=== PATIENT | female | born 1980 | race Hispanic/Latino ===

== ENCOUNTER → 2016-05-26 | Outpatient (CLI) | payer OTHER ==
[~2016-05-26] MED LIST: NORCOTAB PO; SENN1TAB2 PO; SUMA50TA2 PO; TOPA50TA7 PO
[2016-05-26 14:21] LABS: BASO % 0.4 % (0.0-1.0); EOS # 0.1 K/mm3 (0.0-0.50); EOS % 1.2 % (0.0-3.0); LARGE UNSTAINED CELL # 0.1 K/mm3 (0.0-0.4); LARGE UNSTAINED CELL % 0.7 % (0.0-4.0); LYMPH # 1.8 K/mm3 (1.5-4.5); MEAN CORPUSCULAR HEMOGLOBIN 28.3 pg (27.0-33.0); MEAN CORPUSCULAR HGB CONC 33.2 g/dl (32.0-36.5); MEAN CORPUSCULAR VOLUME 85.1 fl (80.0-96.0); MONO # 0.4 K/mm3 (0.0-0.8); MONO % 4.1 % (0.0-5.0); NEUTROPHILS # 6.6 K/mm3 (1.8-7.7); NEUTROPHILS % 74.6 % (36.0-66.0); PLATELET COUNT, AUTOMATED 299 k/mm3 (150-450); RED CELL DISTRIBUTION WIDTH 12.9 % (11.5-14.5); WHITE BLOOD COUNT 8.9 K/mm3 (4.0-10.0)
[2016-05-26 14:45] LABS: HBsAg Prenatal NEGATIVE (NEGATIVE)
[2016-05-26 14:46] LABS: HIV SCRN NEGATIVE (NEGATIVE); HIV SCRN1 NEGATIVE (NEGATIVE)
[2016-05-26 14:47] LABS: CONTROL LINE INT CTR LINE PRESENT
== END ==
LOC: M SMT 11:40
PROVIDERS: ATTEND Advanced Practice Midwife
DX: Z34.81 Encounter for supervision of other normal pregnancy, first trimester (principal)

== ENCOUNTER → 2016-07-05 | Outpatient (CLI) | payer OTHER ==
--- NOTE | 2016-07-06 05:49 | REP ---
Clinical: Anatomical evaluation. Comparison: None . Findings: Examination demonstrates a single live intrauterine in cephalic presentation. motion is identified by technologist. Placenta is noted posteriorly, grade zero and low-lying approximately 2 cm from the closed internal os. Amniotic fluid volume is normal. Cervix measures 4.5 cm in length and appears closed. No evidence for nuchal cord. Gestational age by current measurements 19 weeks 1 day with JAMISON 11/28/2016 . FHR equals 147 beats per minute. BPD 4.4 cm 19 weeks 2 days HC 16.4 cm 19 weeks 1 day AC 13.8 cm 19 weeks 1 day FL 3.1 cm 19 weeks 4 days HL 3.0 cm 19 weeks 5 days HC/AC ratio 1.19 Estimated weight 287 grams ( 54th percentile). Anatomical assessment demonstrates normal structures including cranium, choroid plexus, cavum, cerebellum/posterior fossa, facial profile, lungs, diaphragm, stomach, cord insertion/three-vessel cord, kidneys/bladder, spine, and upper extremities. Limited evaluation of the facial features, heart/ventricular outflow tracts, and lower extremities. Impression: 1. Single live intrauterine in cephalic presentation. 2. Low-lying posterior placenta approximately 2 cm from the closed internal os. 3. Anatomical limitations as described above may warrant reevaluation. Signed by Tomas Aguillon MD 07/06/2016 05:41 A
== END ==
LOC: M SMT 10:10
PROVIDERS: ATTEND Advanced Practice Midwife
DX: Z36 Encounter for antenatal screening of mother (principal); Z3A.19 19 weeks gestation of pregnancy

== ENCOUNTER → 2016-08-04 | Outpatient (CLI) | payer OTHER ==
[2016-08-04 13:16] LABS: BASO % 0.3 % (0.0-1.0); EOS # 0.1 K/mm3 (0.0-0.50); EOS % 1.3 % (0.0-3.0); LARGE UNSTAINED CELL # 0.1 K/mm3 (0.0-0.4); LYMPH # 1.8 K/mm3 (1.5-4.5); LYMPH % 16.9 % (24.0-44.0); MEAN CORPUSCULAR HEMOGLOBIN 29.2 pg (27.0-33.0); MEAN CORPUSCULAR HGB CONC 33.1 g/dl (32.0-36.5); MEAN CORPUSCULAR VOLUME 88.1 fl (80.0-96.0); MONO # 0.5 K/mm3 (0.0-0.8); MONO % 4.7 % (0.0-5.0); NEUTROPHILS # 7.7 K/mm3 (1.8-7.7); NEUTROPHILS % 75.8 % (36.0-66.0); PLATELET COUNT, AUTOMATED 194 k/mm3 (150-450); RED CELL DISTRIBUTION WIDTH 14.2 % (11.5-14.5); WHITE BLOOD COUNT 10.1 K/mm3 (4.0-10.0)
== END ==
LOC: M SMT 08:35
PROVIDERS: ATTEND Advanced Practice Midwife
DX: O09.523 Supervision of elderly multigravida, third trimester (principal); Z36 Encounter for antenatal screening of mother; Z3A.00 Weeks of gestation of pregnancy not specified

== ENCOUNTER → 2016-08-25 | Outpatient (CLI) | payer OTHER ==
--- NOTE | 2016-08-26 06:07 | REP ---
Clinical: Anatomical evaluation. Comparison: 07/05/2016 . Findings: Examination demonstrates a single live intrauterine in breech presentation. motion is identified by technologist. Placenta is noted posteriorly and grade a zero without evidence for placenta previa or abruption. Amniotic fluid volume is normal. Cervix measures the 5.4 cm in length and appears closed. No evidence for nuchal cord. Gestational age by first US 26 weeks 3 days with JAMISON 11/28/2016 . Gestational age by current measurements 26 weeks 2 days with JAMISON 11/29/2016 . FHR equals 141 beats per minute. Estimated weight 1002 grams ( 55th percentile). Anatomical assessment demonstrates normal structures including cranium, choroid plexus, cavum, cerebellum/posterior fossa, facial features, lungs, four-chamber heart/ventricular outflow tracts, diaphragm, stomach, cord insertion/three-vessel cord, kidneys/bladder, spine, and extremities. Impression: 1. Single live intrauterine in breech presentation demonstrating appropriate interval growth. 2. Anatomical assessment is complete and normal. Signed by Tomas Aguillon MD 08/26/2016 05:59 A
== END ==
LOC: M SMT 11:15
PROVIDERS: ATTEND Specialist
DX: O09.522 Supervision of elderly multigravida, second trimester (principal); Z36 Encounter for antenatal screening of mother; Z3A.26 26 weeks gestation of pregnancy

== ENCOUNTER → 2016-09-08 | Outpatient (CLI) | payer OTHER ==
[2016-09-08 19:40] LABS: BASO % 0.4 % (0.0-1.0); EOS # 0.1 K/mm3 (0.0-0.50); EOS % 0.7 % (0.0-3.0); LARGE UNSTAINED CELL # 0.2 K/mm3 (0.0-0.4); LARGE UNSTAINED CELL % 1.3 % (0.0-4.0); LYMPH % 17.2 % (24.0-44.0); MEAN CORPUSCULAR HEMOGLOBIN 28.7 pg (27.0-33.0); MEAN CORPUSCULAR HGB CONC 32.5 g/dl (32.0-36.5); MEAN CORPUSCULAR VOLUME 88.4 fl (80.0-96.0); MONO # 0.6 K/mm3 (0.0-0.8); MONO % 5.3 % (0.0-5.0); NEUTROPHILS # 8.8 K/mm3 (1.8-7.7); NEUTROPHILS % 75.1 % (36.0-66.0); PLATELET COUNT, AUTOMATED 194 k/mm3 (150-450); RED CELL DISTRIBUTION WIDTH 13.7 % (11.5-14.5); WHITE BLOOD COUNT 11.6 K/mm3 (4.0-10.0)
[2016-09-08 19:44] LABS: ANION GAP 8 MEQ/L (8-16); BLOOD UREA NITROGEN 11 MG/DL (7-18); CALCIUM LEVEL 8.4 MG/DL (8.5-10.1); CARBON DIOXIDE LEVEL 25 MEQ/L (21-32); CHLORIDE LEVEL 106 MEQ/L (98-107); CREATININE FOR GFR 0.49 MG/DL (0.55-1.02); GLOMERULAR FILTRATION RATE > 60.0 (>60); GLUCOSE, FASTING 97 MG/DL (70-105); POTASSIUM SERUM 4.1 MEQ/L (3.5-5.1); SODIUM LEVEL 139 MEQ/L (136-145)
== END ==
LOC: M SMT 11:40
PROVIDERS: ATTEND Physician Assistant
DX: R42 Dizziness and giddiness (principal)

== ENCOUNTER → 2016-11-10 | Outpatient (REF) | payer OTHER ==
[~2016-11-10] MED LIST changes: +ACET325T PO; +ADVI200T PO; +PERC5TAB12 PO; +PRENTAB40 PO; -TOPA50TA7 PO; +TOPA50TA8 PO
== END ==
LOC: M LAB REF 17:06
PROVIDERS: ATTEND Advanced Practice Midwife
DX: Z36 Encounter for antenatal screening of mother (principal); Z3A.00 Weeks of gestation of pregnancy not specified

== ENCOUNTER 2016-11-26 06:17 | Inpatient (IN) | payer OTHER ==
[2016-11-26] VITALS (8 sets, daily range): BP systolic 101–118; BP diastolic 55–74
[~2016-11-26] VITALS: Ht 152.4 cm; Wt 74.0 kg
[~2016-11-26 06:17] MED LIST changes: -ADVI200T PO; -PERC5TAB12 PO
[2016-11-26] MEDS ORDERED: BICITRA 30ML SOLN UDC PO ONE (07:00)
[2016-11-26] MEDS ORDERED: LR 800 ML IV ONE (07:00)
[2016-11-26] MEDS ORDERED: LR 1,000 ML IV SCH ×2 (07:00→09:45)
[2016-11-26 07:27] LABS: MEAN CORPUSCULAR HEMOGLOBIN 29.2 pg (27.0-33.0); MEAN CORPUSCULAR HGB CONC 33.9 g/dl (32.0-36.5); RED CELL DISTRIBUTION WIDTH 14.2 % (11.5-14.5); WHITE BLOOD COUNT 13.6 K/mm3 (4.0-10.0)
[2016-11-26] MEDS ORDERED: MORPHINE PRES-FREE INJ 10 MG/10 ML VIAL (J2274) As Ordered ONE (08:07)
[2016-11-26] MEDS ORDERED: OXYTOCIN INJ 10 UNITS/ML VIAL (J2590) As Ordered ONE (08:09)
[2016-11-26] MEDS ORDERED: METOCLOPRAMIDE INJ 10MG/2ML VIAL (J2765) IV PRN (08:28)
[2016-11-26] MEDS ORDERED: NALOXONE INJ 0.4 MG/1 ML VIAL (J2310) IV PRN ×2 (08:28)
[2016-11-26] MEDS ORDERED: ONDANSETRON 4MG/2ML VIAL (J2405) IV PRN ×3 (08:28→09:45)
[2016-11-26] MEDS ORDERED: ONDANSETRON 4MG/2ML VIAL (J2405) As Ordered ONE (08:43)
[2016-11-26] MEDS ORDERED: KETOROLAC 60 MG/2 ML VIAL (J1885) As Ordered ONE (08:43)
[2016-11-26] MEDS: PRENATAL VITAMINS CHEWABLE TABLET PO SCH (09:00)
[2016-11-26] MEDS ORDERED: PERCOCET 5MG/325MG TAB PO PRN ×2 (09:45)
[2016-11-26] MEDS ORDERED: fentaNYL 100 MCG/2 ML INJECTION (J3010) IV PRN (09:45)
[2016-11-26] MEDS ORDERED: RHOGAM 300 MCG (1500 IU) INJ (J2790) IM SCH (09:45)
[2016-11-26] MEDS ORDERED: DOCUSATE SODIUM 100 MG CAP PO PRN (09:45)
[2016-11-26] MEDS ORDERED: OXYTOCIN DRIP 30 UNITS in APPROPRIATE DILUENT 1 EA IV ONE (09:45)
[2016-11-26] MEDS ORDERED: MEPERIDINE INJ 25 MG/ML VIAL (J2175) IV PRN (09:45)
[2016-11-26] MEDS ORDERED: KETOROLAC 30 MG/ML VIAL (J1885) IV PRN (09:45)
[2016-11-26] MEDS ORDERED: MEASLES,MUMPS,RUBELLA VACCINE INJ (MMR-II) (90707) SC SCH (09:45)
--- NOTE | 2016-11-26 12:26 | RO ---
DATE OF PROCEDURE: 11/26/2016 PREPROCEDURE DIAGNOSES: 39 week gestation, prior section, undesired fertility. POSTPROCEDURE DIAGNOSES: 39 week gestation, prior section, undesired fertility. PROCEDURE: Repeat low transverse section and bilateral tubal ligation. SURGEON: Brennan Mcconnell MD GRAIN PACKER: Hosea Stearns DO ANESTHESIA: Spinal. ESTIMATED BLOOD LOSS: 600 mL. URINE OUTPUT: 150 mL. FINDINGS: 3784 gram or 8 pounds 5 ounce male with scores of 8 and 9. Loose nuchal cord times one. Normal uterus, fallopian tubes and ovaries. DESCRIPTION OF PROCEDURE: The patient was taken to the operating room where spinal anesthesia was induced. She was prepped and draped in a sterile fashion in the supine position. Hutchison catheter was placed. Pfannenstiel skin incision was made with a scalpel and carried through to the fascia. The fascia was nicked and extended. The fascia was dissected off the rectus muscle. The peritoneal cavity was entered. Bladder flap was created. A curvilinear incision was made in the lower uterine segment. The incision was extended manually. The infant was delivered from the vertex position without difficulty. Loose nuchal cord times one was reduced manually. Cord was doubly clamped and cut. The was handed off to the awaiting nurses. The placenta was expressed. The uterus was exteriorized and cleared of clots and debris. Uterine incision was closed with #0 Vicryl in a running fashion. A second imbricating layer of #0 Vicryl was placed. Attention was turned to the fallopian tubes. [place] was placed at the mid portion of each fallopian tube. A window was created in the broad ligament. Free tie of #3-0 chromic was placed on either side of the Will clamp. A knuckle of tube was excised and sent to pathology. The uterus was placed back into the abdominal cavity. The peritoneum was closed with #2-0 Vicryl in a running fashion. Fascia was closed with #0 Vicryl in a running fashion. The deep layer was irrigated and closed with #3-0 chromic. Skin was closed with #4-0 Monocryl subcuticular sutures. Sponge, instrument and needle counts were correct.
[2016-11-26] MEDS: LR 1,000 ML IV SCH ×2 (13:09→17:34)
[2016-11-26] MEDS: NALBUPHINE HCL 10 MG/ML AMP (J2300) IV PRN ×2 (13:09→19:23)
[2016-11-26] MEDS: KETOROLAC 30 MG/ML VIAL (J1885) IV SCH ×2 (15:18→20:53)
[2016-11-27 02:05] VITALS: BP 105/58
[2016-11-27] MEDS: KETOROLAC 30 MG/ML VIAL (J1885) IV SCH ×2 (03:02→09:46)
[2016-11-27 06:10] VITALS: BP 110/58
[2016-11-27 06:46] LABS: MEAN CORPUSCULAR HEMOGLOBIN 28.2 pg (27.0-33.0); MEAN CORPUSCULAR HGB CONC 32.8 g/dl (32.0-36.5); MEAN CORPUSCULAR VOLUME 86.1 fl (80.0-96.0); RED CELL DISTRIBUTION WIDTH 14.1 % (11.5-14.5); WHITE BLOOD COUNT 8.8 K/mm3 (4.0-10.0)
[2016-11-27] MEDS ORDERED: PERC5TAB12 PO (09:01)
[2016-11-27] MEDS: PRENATAL VITAMINS CHEWABLE TABLET PO SCH (09:45)
[2016-11-27 10:00] VITALS: BP 122/65
[2016-11-27] MEDS ORDERED: LORATADINE 10 MG TAB PO ONE (13:00)
[2016-11-27 14:00] VITALS: BP 114/71
[2016-11-27] MEDS: IBUPROFEN 800 MG TAB PO SCH (17:09)
[2016-11-27 18:00] VITALS: BP 121/70
[2016-11-28] MEDS: IBUPROFEN 800 MG TAB PO SCH ×2 (01:23→08:58)
[2016-11-28 06:06] VITALS: BP_SYST 106; BP_SYST 121; BP_DIAS 67; BP_DIAS 78
--- NOTE | 2016-11-28 07:14 | DSES ---
DATE OF ADMISSION: 11/26/2016 DATE OF DISCHARGE: 36-year-old, (G) 5, para (P) 3-0-1-3 female, at 39-0/7 weeks gestation, presents for elective repeat section and bilateral tubal ligation. She has a history of one prior . HOSPITAL COURSE: On 11/26/2016, she underwent repeat low transverse section and bilateral tubal ligation without complication. Her postoperative course was unremarkable. She had adequate return of bladder and bowel function. She was deemed stable for discharge on postoperative day #2. ADMISSION DIAGNOSIS: term, prior section times one. DISCHARGE DIAGNOSIS: Delivered. PROCEDURE: Repeat low transverse section and bilateral tubal ligation. DISPOSITION: The patient will followup with Dr. Mcconnell in 2 weeks. Instructions were reviewed.
[2016-11-28] MEDS ORDERED: ADVI200T PO (07:46)
[2016-11-28] MEDS: PRENATAL VITAMINS CHEWABLE TABLET PO SCH (08:57)
[2016-11-28] MEDS ORDERED: INFLUENZA QUADRIVALENT PF VACCINE 0.5ML SYRINGE (90686) IM ONE (09:00)
== END 2016-11-28 10:55 | disposition home or self-care (01) | DRG 766 ==
LOC: M LDI 06:17 → M OBS 11:55
PROVIDERS: ADMIT Specialist; ATTEND Specialist
PROC: 10D00Z1 Extraction of Products of Conception, Low, Open Approach (ICD-10-PCS; principal; 2016-11-26)
PROC: 0UB70ZZ Excision of Bilateral Fallopian Tubes, Open Approach (ICD-10-PCS; 2016-11-26)
DX: O34.211 Maternal care for low transverse scar from previous cesarean delivery (principal); Z3A.39 39 weeks gestation of pregnancy; Z30.2 Encounter for sterilization; O69.82X0 Labor and delivery complicated by other cord entanglement, without compression, not applicable or unspecified; Z37.0 Single live birth

== ENCOUNTER → 2017-05-30 | Outpatient (REF) | payer OTHER ==
[2017-05-30 19:46] LABS: INFLUENZA A AMPLIFICATION NEGATIVE (NEGATIVE); INFLUENZA B AMPLIFICATION NEGATIVE (NEGATIVE)
== END ==
LOC: M LAB REF 17:02
DX: J06.9 Acute upper respiratory infection, unspecified (principal)